=== PATIENT | female | born 1980 | race Caucasian/White ===

== ENCOUNTER 2019-01-08 14:22 | Inpatient (IN) | payer MEDICAID ==
[~2019-01-08] VITALS: Ht 170.2 cm; Wt 104.2 kg
[~2019-01-08 14:22] MED LIST: ALPR1TAB2; BUSP10TA PO; CHLO25CA9 PO; FLUO20CA19 PO; GABA-826 PO; TRAZ-137; TRAZ-137 PO
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
[2019-01-08] MEDS ORDERED: PANTOPRAZOLE 40 MG IV ONE ×2 (14:47→15:58)
[2019-01-08] MEDS ORDERED: LORazepam 2 MG/ML, 1ML ONE (14:48)
[2019-01-08] MEDS ORDERED: PANTOPRAZOLE 40 MG IV IVPush ONE ×2 (15:00→15:30)
[2019-01-08] MEDS ORDERED: LORazepam 2 MG/ML, 1ML IVPush ONE ×2 (15:00)
[2019-01-08] MEDS ORDERED: SODIUM CHLORIDE 0.9% 1,000ML IVBOLUS ONE ×2 (15:00→15:30)
[2019-01-08] MEDS ORDERED: SODIUM CHLORIDE FLUSH 10ML SYR IVF ONE ×2 (15:00)
--- NOTE | 2019-01-08 15:01 | NUR ---
PT MEDICATED PER [facility]
[2019-01-08 15:13] LABS: MEAN CORPUSCULAR HEMOGLOBIN 32.2 pg (27.0-34.8); MEAN CORPUSCULAR HGB CONC 32.5 g/dL (32.4-35.8); MEAN CORPUSCULAR VOLUME 99.3 fL (80-100); MEAN PLATELET VOLUME 8.6 fL (7.4-10.4); PLATELET COUNT 89 x10^3/uL (130-400); RED BLOOD COUNT 2.48 x10^6/uL (3.82-5.3); RED CELL DISTRIBUTION WIDTH 19.2 % (9.6-15.2)
[2019-01-08 15:17] LABS: INTERNATIONAL NORMALIZED RATIO 1.4 (0.93-1.1); PROTHROMBIN TIME 14.5 Seconds (9.6-11.5)
[2019-01-08] MEDS ORDERED: PANTOPRAZOLE 80 MG in SODIUM CHLORIDE 0.9% 100 ML IV SCH ×2 (15:17→18:00)
[2019-01-08] MEDS ORDERED: OCTREOTIDE 500 MCG in SODIUM CHLORIDE 0.9% 249 ML IV PRN (15:17)
[2019-01-08 15:22] LABS: ALANINE AMINOTRANSFERASE 54 U/L (12-78); ALBUMIN 1.7 g/dL (3.4-5.0); ANION GAP 13 mmol/L (5-15); CALCIUM 7.1 mg/dL (8.5-10.1); CHLORIDE 107 mmol/L (98-107); CREATININE 1.05 mg/dL (0.55-1.02)
[2019-01-08 15:24] LABS: ALKALINE PHOSPHATASE 168 U/L (45-117); BILIRUBIN,TOTAL 5.6 mg/dL (0.2-1.0); TOTAL PROTEIN 7.4 g/dL (6.4-8.2)
--- NOTE | 2019-01-08 15:27 | NUR ---
2ND IV PLACED IN RIGHT AC.
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
[2019-01-08] MEDS: D5%-0.45% NACL 1,000 ML IV SCH ×4 (15:30→23:18)
[2019-01-08] MEDS ORDERED: THIAMINE 200 MG in SODIUM CHLORIDE 0.9% 50 ML IV ONE (15:30)
[2019-01-08] MEDS ORDERED: DIAZEPAM 5 MG/ML, 10ML VIAL IV ONE ×2 (15:30)
[2019-01-08 15:38] LABS: BASOPHILS # (AUTO) 0.05 x10^3/uL (0-0.1); BASOPHILS % (AUTO) 0 % (0-1); EOSINOPHILS # (AUTO) 0.02 x10^3/uL (0-0.4); EOSINOPHILS % (AUTO) 0 % (1-7); LYMPHOCYTES # (AUTO) 2.93 x10^3/uL (1-3.4); LYMPHOCYTES % (AUTO) 17 % (22-44); MD SCAN; MONOCYTES # (AUTO) 1.16 x10^3/uL (0.2-0.8); MONOCYTES % (AUTO) 7 % (2-9); NEUTROPHILS # (AUTO) 13.31 x10^3/uL (1.8-6.8); NEUTROPHILS % (AUTO) 76 % (42-75)
--- NOTE | 2019-01-08 15:40 | NUR ---
DISCUSSION WITH MD Covington/Celestine MURCIA MD WANTING PROTONIX AND OCTREOTIDE TO RUN IN THE 2 LINES AVAILABLE, PERMISSION TO HOLD THYAMINE AND D5 AT THIS TIME. WILL CONTINUE TO MONITOR AND REASSESS.
[2019-01-08] MEDS ORDERED: CEFTRIAXONE PMX 1GM/50ML 50 ML IV ONE (16:00)
--- NOTE | 2019-01-08 16:10 | NUR ---
pt to ct
--- NOTE | 2019-01-08 16:25 | NUR ---
PT BACK FROM CT. RESTING COMFORTABLY IN BED. PT CONTINUES TO BE TACHY BUT HAS DECREASED TO 130S, OTHER VSS AT THIS TIME. AWAITING TEST RESULTS AND DISPO. CALL SAVANNAH LEGGETT REACH
[2019-01-08] MEDS ORDERED: OMNIPAQUE 350 MG/ML, 100ML BOTTLE ONE (16:34)
[2019-01-08] MEDS ORDERED: CEFTRIAXONE PMX 1GM/50ML 50 ML ONE (17:02)
--- NOTE | 2019-01-08 17:10 | NUR ---
DISCUSSION WITH ER MD FOR BLOOD CULTURES TO BE DRAWN PRIOR TO [facility] ADMIN.
--- NOTE | 2019-01-08 17:15 | NUR ---
CALLED FOR REPORT, [facility] PORTFOLIO MANAGER STATED THEY WILL CALL ME BACK.
--- NOTE | 2019-01-08 17:22 | NUR ---
REPORT GIVEN TO KARTHIK RN
[2019-01-08] MEDS ORDERED: MAGNESIUM SULFATE 4 GM/NS 100 ML IV ONE (17:30)
--- NOTE | 2019-01-08 17:30 | NUR ---
hospitalist at bedside. pt given ice chips with MD permission. pt legs and body cleaned with damp rags. pt provided chapstick and is ready for transport to an inpatient unit.
[2019-01-08] MEDS ORDERED: hydrALAzine 20 MG/ML, 1ML IVPush PRN (18:00)
[2019-01-08] MEDS ORDERED: morphine SULFATE 10 MG/ML, 1ML IVPush PRN (18:00)
[2019-01-08] MEDS ORDERED: LORazepam 2 MG/ML, 1ML IVPush PRN (18:00)
[2019-01-08] MEDS ORDERED: POTASSIUM CHLORIDE 20 MEQ, MAGNESIUM SULFATE 1 GM, FOLIC ACID 1 MG, THIAMINE 200 MG, MV... IV SCH (18:00)
[2019-01-08] MEDS: CEFTRIAXONE PMX 2GM/50ML 50 ML IV SCH (18:47)
[2019-01-08 19:20] VITALS: BP 100/58
[2019-01-08 19:47] LABS: MD SCAN
[2019-01-08 19:48] LABS: BASOPHILS # (AUTO) 0.03 x10^3/uL (0-0.1); BASOPHILS % (AUTO) 0 % (0-1); EOSINOPHILS # (AUTO) 0.05 x10^3/uL (0-0.4); EOSINOPHILS % (AUTO) 0 % (1-7); LYMPHOCYTES # (AUTO) 3.24 x10^3/uL (1-3.4); LYMPHOCYTES % (AUTO) 22 % (22-44); MEAN CORPUSCULAR HEMOGLOBIN 32.6 pg (27.0-34.8); MEAN CORPUSCULAR HGB CONC 32.6 g/dL (32.4-35.8); MEAN CORPUSCULAR VOLUME 99.8 fL (80-100); MEAN PLATELET VOLUME 8.9 fL (7.4-10.4); MONOCYTES # (AUTO) 0.75 x10^3/uL (0.2-0.8); MONOCYTES % (AUTO) 5 % (2-9); NEUTROPHILS # (AUTO) 10.92 x10^3/uL (1.8-6.8); NEUTROPHILS % (AUTO) 73 % (42-75); PLATELET COUNT 72 x10^3/uL (130-400); RED BLOOD COUNT 2.35 x10^6/uL (3.82-5.3); RED CELL DISTRIBUTION WIDTH 19.3 % (9.6-15.2)
[2019-01-08] MEDS: METRONIDAZOLE PMX 500MG/100ML 100 ML IV SCH (19:58)
[2019-01-08] MEDS ORDERED: LORazepam 2 MG/ML, 1ML IV PRN ×2 (21:00)
[2019-01-08] MEDS: MULTIVITAMINS/MINERALS TABLET PO SCH (21:00)
[2019-01-08] MEDS: LORazepam 2 MG/ML, 1ML IV PRN (22:12)
[2019-01-09] VITALS (7 sets, daily range): BP systolic 100–114; BP diastolic 59–71
[2019-01-09 01:35] LABS: ALANINE AMINOTRANSFERASE 49 U/L (12-78); ALBUMIN 1.8 g/dL (3.4-5.0); ANION GAP 11 mmol/L (5-15); CALCIUM 6.6 mg/dL (8.5-10.1); CHLORIDE 107 mmol/L (98-107)
[2019-01-09 01:38] LABS: ALKALINE PHOSPHATASE 146 U/L (45-117); BILIRUBIN,TOTAL 5.1 mg/dL (0.2-1.0); CREATININE 0.99 mg/dL (0.55-1.02); TOTAL PROTEIN 6.7 g/dL (6.4-8.2)
[2019-01-09] MEDS: OCTREOTIDE 500 MCG in SODIUM CHLORIDE 0.9% 249 ML IV SCH ×2 (02:13→16:55)
[2019-01-09] MEDS: METRONIDAZOLE PMX 500MG/100ML 100 ML IV SCH ×3 (05:13→20:06)
[2019-01-09] MEDS: POTASSIUM CHLORIDE 20 MEQ, MAGNESIUM SULFATE 1 GM, FOLIC ACID 1 MG, THIAMINE 200 MG, MV... IV SCH (05:40)
[2019-01-09] MEDS: PANTOPRAZOLE 40 MG IV IVPush SCH ×2 (08:36→20:06)
[2019-01-09] MEDS: MULTIVITAMINS/MINERALS TABLET PO SCH ×2 (08:38→20:06)
[2019-01-09] MEDS: LORazepam 2 MG/ML, 1ML IV PRN ×5 (08:42→21:54)
[2019-01-09] MEDS ORDERED: LIDOCAINE-MPF 1%, 5ML ONE (11:24)
[2019-01-09 13:20] LABS: AMPHETAMINE SCREEN, URINE Negative (Negative); BARBITURATE SCREEN, URINE Negative (Negative); BENZODIAZEPINE SCREEN, URINE Positive (Negative); CANNABINOID SCREEN, URINE Negative (Negative); COCAINE SCREEN, URINE Negative (Negative); METHADONE SCREEN, URINE Negative (Negative); OPIATE SCREEN, URINE Negative (Negative)
[2019-01-09 13:30] LABS: CULTURE INDICATED? YES; MICROSCOPIC INDICATED
[2019-01-09] MEDS: D5%-0.45% NACL 1,000 ML IV SCH ×2 (14:25→16:55)
[2019-01-09] MEDS: CEFTRIAXONE PMX 2GM/50ML 50 ML IV SCH (16:55)
[2019-01-09 20:11] LABS: MEAN CORPUSCULAR HEMOGLOBIN 32.9 pg (27.0-34.8); MEAN CORPUSCULAR HGB CONC 32.6 g/dL (32.4-35.8); MEAN PLATELET VOLUME 8.5 fL (7.4-10.4); RED BLOOD COUNT 1.98 x10^6/uL (3.82-5.3); RED CELL DISTRIBUTION WIDTH 18.6 % (9.6-15.2)
[2019-01-09 20:13] LABS: PLATELET COUNT 32 x10^3/uL (130-400)
[2019-01-09 20:21] LABS: MD YES
[2019-01-09 20:25] LABS: EOS#(MANUAL) 0.36 x10^3/uL (0.0-0.4); EOS% (MANUAL) 5 % (1-7); LYMPHS% (MANUAL) 18 % (22-44); MONOS#(MANUAL) 0.22 x10^3/uL (0.3-2.7); MONOS% (MANUAL) 3 % (2-9); SEG#(MANUAL) 5.33 x10^3/uL (1.8-6.8); SEGS% (MANUAL) 74 % (42-75)
[2019-01-09 20:26] LABS: ANISOCYTOSIS 1+; OVALOCYTES 1+; POLYCHROMASIA 1+
[2019-01-09 20:27] LABS: <PLATELET ESTIMATE> DECREASED; <PLT MORPHOLOGY> NORMAL PLT MORPH
[2019-01-10 00:29] VITALS: BP 108/62
[2019-01-10] MEDS: LORazepam 2 MG/ML, 1ML IV PRN ×6 (01:09→23:27)
[2019-01-10 02:02] VITALS: BP 95/65
[2019-01-10 02:32] LABS: MEAN CORPUSCULAR HEMOGLOBIN 31.4 pg (27.0-34.8); MEAN CORPUSCULAR HGB CONC 32.1 g/dL (32.4-35.8); MEAN CORPUSCULAR VOLUME 97.7 fL (80-100); MEAN PLATELET VOLUME 8.8 fL (7.4-10.4); RED BLOOD COUNT 2.41 x10^6/uL (3.82-5.3); RED CELL DISTRIBUTION WIDTH 20.6 % (9.6-15.2)
[2019-01-10 02:33] LABS: PLATELET COUNT 32 x10^3/uL (130-400)
[2019-01-10 03:04] LABS: BASOPHILS # (AUTO) 0.02 x10^3/uL (0-0.1); BASOPHILS % (AUTO) 0 % (0-1); EOSINOPHILS # (AUTO) 0.16 x10^3/uL (0-0.4); EOSINOPHILS % (AUTO) 2 % (1-7); LYMPHOCYTES # (AUTO) 1.45 x10^3/uL (1-3.4); LYMPHOCYTES % (AUTO) 21 % (22-44); MD SCAN; MONOCYTES # (AUTO) 0.58 x10^3/uL (0.2-0.8); MONOCYTES % (AUTO) 9 % (2-9); NEUTROPHILS # (AUTO) 4.54 x10^3/uL (1.8-6.8); NEUTROPHILS % (AUTO) 67 % (42-75)
[2019-01-10] MEDS: METRONIDAZOLE PMX 500MG/100ML 100 ML IV SCH ×3 (03:41→20:31)
[2019-01-10] MEDS: OCTREOTIDE 500 MCG in SODIUM CHLORIDE 0.9% 249 ML IV SCH ×2 (04:48→14:37)
[2019-01-10] MEDS: POTASSIUM CHLORIDE 20 MEQ, MAGNESIUM SULFATE 1 GM, FOLIC ACID 1 MG, THIAMINE 200 MG, MV... IV SCH (06:24)
[2019-01-10 06:28] VITALS: BP 113/70
[2019-01-10 08:01] LABS: ALANINE AMINOTRANSFERASE 33 U/L (12-78); ALBUMIN 1.4 g/dL (3.4-5.0); ANION GAP 6 mmol/L (5-15); CALCIUM 6.6 mg/dL (8.5-10.1); CHLORIDE 108 mmol/L (98-107); CREATININE 0.68 mg/dL (0.55-1.02)
[2019-01-10 08:03] LABS: ALKALINE PHOSPHATASE 111 U/L (45-117); BILIRUBIN,TOTAL 5.2 mg/dL (0.2-1.0); TOTAL PROTEIN 5.8 g/dL (6.4-8.2)
[2019-01-10] MEDS: MULTIVITAMINS/MINERALS TABLET PO SCH ×2 (08:04→20:31)
[2019-01-10] MEDS: PANTOPRAZOLE 40 MG IV IVPush SCH ×2 (08:04→20:31)
[2019-01-10 09:15] LABS: CELLS COUNTED 63
[2019-01-10 09:16] LABS: MEAN CORPUSCULAR HEMOGLOBIN 32.3 pg (27.0-34.8); MEAN CORPUSCULAR HGB CONC 33.1 g/dL (32.4-35.8); MEAN CORPUSCULAR VOLUME 97.6 fL (80-100); MEAN PLATELET VOLUME 8.5 fL (7.4-10.4)
[2019-01-10 09:19] LABS: BASOPHILS # (AUTO) 0.03 x10^3/uL (0-0.1); BASOPHILS % (AUTO) 0 % (0-1); EOSINOPHILS # (AUTO) 0.22 x10^3/uL (0-0.4); EOSINOPHILS % (AUTO) 3 % (1-7); LYMPHOCYTES # (AUTO) 1.54 x10^3/uL (1-3.4); LYMPHOCYTES % (AUTO) 24 % (22-44); MD SCAN; MONOCYTES # (AUTO) 0.56 x10^3/uL (0.2-0.8); MONOCYTES % (AUTO) 9 % (2-9); NEUTROPHILS # (AUTO) 4.16 x10^3/uL (1.8-6.8); NEUTROPHILS % (AUTO) 64 % (42-75); PLATELET COUNT 31 x10^3/uL (130-400)
[2019-01-10 13:39] VITALS: BP 110/74
[2019-01-10] MEDS: D5%-0.45% NACL 1,000 ML IV SCH (16:53)
[2019-01-10] MEDS: CEFTRIAXONE PMX 2GM/50ML 50 ML IV SCH (16:53)
[2019-01-10] MEDS ORDERED: POTASSIUM CHLORIDE 20 MEQ TAB.ER.PRT PO ONE (18:00)
[2019-01-10 19:09] VITALS: BP 109/72
[2019-01-11] MEDS: OCTREOTIDE 500 MCG in SODIUM CHLORIDE 0.9% 249 ML IV SCH ×2 (00:30→08:45)
[2019-01-11] MEDS: D5%-0.45% NACL 1,000 ML IV SCH ×3 (00:30→17:44)
[2019-01-11 00:38] VITALS: BP 113/83
[2019-01-11] MEDS: LORazepam 2 MG/ML, 1ML IV PRN ×4 (01:45→20:46)
[2019-01-11] MEDS: METRONIDAZOLE PMX 500MG/100ML 100 ML IV SCH ×3 (04:07→20:23)
[2019-01-11] MEDS: POTASSIUM CHLORIDE 20 MEQ, MAGNESIUM SULFATE 1 GM, FOLIC ACID 1 MG, THIAMINE 200 MG, MV... IV SCH (06:14)
[2019-01-11 06:50] LABS: MEAN CORPUSCULAR HEMOGLOBIN 32.7 pg (27.0-34.8); MEAN CORPUSCULAR HGB CONC 32.7 g/dL (32.4-35.8); MEAN CORPUSCULAR VOLUME 99.8 fL (80-100); MEAN PLATELET VOLUME 9.5 fL (7.4-10.4); RED BLOOD COUNT 2.75 x10^6/uL (3.82-5.3); RED CELL DISTRIBUTION WIDTH 21.4 % (9.6-15.2)
[2019-01-11 06:53] LABS: PLATELET COUNT 36 x10^3/uL (130-400)
[2019-01-11 06:59] LABS: ALBUMIN 1.6 g/dL (3.4-5.0); ANION GAP 7 mmol/L (5-15); CHLORIDE 107 mmol/L (98-107)
[2019-01-11 07:03] LABS: ALANINE AMINOTRANSFERASE 37 U/L (12-78); ALKALINE PHOSPHATASE 124 U/L (45-117); BILIRUBIN,TOTAL 6.7 mg/dL (0.2-1.0); CREATININE 0.69 mg/dL (0.55-1.02)
[2019-01-11 07:33] LABS: BASOPHILS # (AUTO) 0.04 x10^3/uL (0-0.1); BASOPHILS % (AUTO) 1 % (0-1); EOSINOPHILS # (AUTO) 0.18 x10^3/uL (0-0.4); EOSINOPHILS % (AUTO) 3 % (1-7); LYMPHOCYTES # (AUTO) 1.15 x10^3/uL (1-3.4); LYMPHOCYTES % (AUTO) 18 % (22-44); MD SCAN; MONOCYTES % (AUTO) 6 % (2-9); NEUTROPHILS # (AUTO) 4.51 x10^3/uL (1.8-6.8); NEUTROPHILS % (AUTO) 72 % (42-75)
[2019-01-11] MEDS: PANTOPRAZOLE 40 MG IV IVPush SCH ×2 (08:22→20:23)
[2019-01-11] MEDS: MULTIVITAMINS/MINERALS TABLET PO SCH ×2 (08:22→20:45)
[2019-01-11 08:41] VITALS: BP 112/83
[2019-01-11] MEDS ORDERED: MAGNESIUM SULFATE PMX 2GM/50ML 50 ML IV ONE ×2 (11:00→15:00)
[2019-01-11] MEDS ORDERED: PROPOFOL 10 MG/ML, 20ML ONE (13:27)
[2019-01-11] MEDS ORDERED: ACETAMINOPHEN 325 MG TABLET PO PRN (14:30)
[2019-01-11] MEDS ORDERED: ONDANSETRON ODT 8 MG PO PRN (14:30)
[2019-01-11] MEDS ORDERED: ONDANSETRON 2MG/ML, 2ML IV PRN (14:30)
[2019-01-11] MEDS ORDERED: OXYcodone 5 MG/5 ML ORAL.SOL UDC PO PRN (14:30)
[2019-01-11] MEDS ORDERED: FENTANYL PF 100 MCG/2ML IV PRN (14:30)
[2019-01-11 14:50] VITALS: BP 109/76
[2019-01-11] MEDS: OMEPRAZOLE 20 MG CAPSULE.DR PO SCH (16:43)
[2019-01-11] MEDS: ONDANSETRON 2MG/ML, 2ML IVPush PRN (16:44)
[2019-01-11] MEDS: CEFTRIAXONE PMX 2GM/50ML 50 ML IV SCH (19:37)
[2019-01-11 19:52] VITALS: BP 111/77
[2019-01-11] MEDS: MAGNESIUM OXIDE 400 MG TABLET PO SCH (20:45)
[2019-01-12] MEDS: D5%-0.45% NACL 1,000 ML IV SCH (00:37)
[2019-01-12] MEDS: LORazepam 2 MG/ML, 1ML IV PRN ×5 (01:41→21:55)
[2019-01-12 01:59] VITALS: BP 113/83
[2019-01-12] MEDS: METRONIDAZOLE PMX 500MG/100ML 100 ML IV SCH ×3 (04:18→20:06)
[2019-01-12] MEDS: POTASSIUM CHLORIDE 20 MEQ, MAGNESIUM SULFATE 1 GM, FOLIC ACID 1 MG, THIAMINE 200 MG, MV... IV SCH (06:13)
[2019-01-12 07:01] LABS: ALANINE AMINOTRANSFERASE 30 U/L (12-78); ALBUMIN 1.5 g/dL (3.4-5.0); ANION GAP 7 mmol/L (5-15); CALCIUM 7.2 mg/dL (8.5-10.1); CHLORIDE 108 mmol/L (98-107); CREATININE 0.67 mg/dL (0.55-1.02)
[2019-01-12 07:03] LABS: ALKALINE PHOSPHATASE 109 U/L (45-117); BILIRUBIN,TOTAL 6.2 mg/dL (0.2-1.0); TOTAL PROTEIN 6.4 g/dL (6.4-8.2)
[2019-01-12 07:28] LABS: MEAN CORPUSCULAR HEMOGLOBIN 33.1 pg (27.0-34.8); MEAN CORPUSCULAR HGB CONC 32.9 g/dL (32.4-35.8); MEAN CORPUSCULAR VOLUME 100.5 fL (80-100); RED BLOOD COUNT 2.67 x10^6/uL (3.82-5.3); RED CELL DISTRIBUTION WIDTH 23.3 % (9.6-15.2)
[2019-01-12 07:34] LABS: BASOPHILS # (AUTO) 0.01 x10^3/uL (0-0.1); BASOPHILS % (AUTO) 0 % (0-1); EOSINOPHILS # (AUTO) 0.17 x10^3/uL (0-0.4); EOSINOPHILS % (AUTO) 3 % (1-7); LYMPHOCYTES % (AUTO) 24 % (22-44); MD SCAN; MEAN PLATELET VOLUME 8.7 fL (7.4-10.4); MONOCYTES # (AUTO) 0.59 x10^3/uL (0.2-0.8); MONOCYTES % (AUTO) 9 % (2-9); NEUTROPHILS # (AUTO) 4.08 x10^3/uL (1.8-6.8); NEUTROPHILS % (AUTO) 64 % (42-75)
[2019-01-12 07:40] LABS: PLATELET COUNT 43 x10^3/uL (130-400)
[2019-01-12 07:45] LABS: INTERNATIONAL NORMALIZED RATIO 1.82 (0.93-1.1); PROTHROMBIN TIME 18.7 Seconds (9.6-11.5)
[2019-01-12 08:07] VITALS: BP 130/77
[2019-01-12] MEDS ORDERED: LORazepam 1MG TABLET ONE ×2 (08:25→17:25)
[2019-01-12] MEDS: OMEPRAZOLE 20 MG CAPSULE.DR PO SCH ×2 (08:59→17:11)
[2019-01-12] MEDS: MULTIVITAMINS/MINERALS TABLET PO SCH ×2 (09:01→20:06)
[2019-01-12] MEDS: MAGNESIUM OXIDE 400 MG TABLET PO SCH ×2 (09:01→20:10)
[2019-01-12] MEDS: PANTOPRAZOLE 40 MG IV IVPush SCH (09:02)
[2019-01-12] MEDS ORDERED: POTASSIUM CHLORIDE 20 MEQ TAB.ER.PRT PO ONE ×2 (11:30)
[2019-01-12 15:00] VITALS: BP 109/75
[2019-01-12 15:46] VITALS: BP 96/63
[2019-01-12 16:00] VITALS: BP 109/75
[2019-01-12] MEDS: POTASSIUM CHLORIDE 20 MEQ PACKET PO SCH (17:11)
[2019-01-12] MEDS: CEFTRIAXONE PMX 2GM/50ML 50 ML IV SCH (17:11)
[2019-01-12 20:41] VITALS: BP 114/82
[2019-01-13 01:53] VITALS: BP 111/76
[2019-01-13] MEDS: METRONIDAZOLE PMX 500MG/100ML 100 ML IV SCH (04:29)
[2019-01-13] MEDS: POTASSIUM CHLORIDE 20 MEQ, MAGNESIUM SULFATE 1 GM, FOLIC ACID 1 MG, THIAMINE 200 MG, MV... IV SCH (06:28)
[2019-01-13 06:43] LABS: MEAN CORPUSCULAR HEMOGLOBIN 31.9 pg (27.0-34.8); MEAN CORPUSCULAR VOLUME 99.7 fL (80-100); PLATELET COUNT 55 x10^3/uL (130-400); RED BLOOD COUNT 2.89 x10^6/uL (3.82-5.3); RED CELL DISTRIBUTION WIDTH 23.1 % (9.6-15.2)
[2019-01-13 06:54] LABS: ALANINE AMINOTRANSFERASE 28 U/L (12-78); ALBUMIN 1.6 g/dL (3.4-5.0); ANION GAP 7 mmol/L (5-15); CALCIUM 7.6 mg/dL (8.5-10.1); CHLORIDE 109 mmol/L (98-107); CREATININE 0.65 mg/dL (0.55-1.02)
[2019-01-13 06:55] LABS: INTERNATIONAL NORMALIZED RATIO 1.83 (0.93-1.1); PROTHROMBIN TIME 18.8 Seconds (9.6-11.5)
[2019-01-13 06:57] LABS: ALKALINE PHOSPHATASE 121 U/L (45-117); BILIRUBIN,TOTAL 7.4 mg/dL (0.2-1.0); TOTAL PROTEIN 6.8 g/dL (6.4-8.2)
[2019-01-13 07:02] LABS: BASOPHILS # (AUTO) 0.02 x10^3/uL (0-0.1); BASOPHILS % (AUTO) 0 % (0-1); EOSINOPHILS # (AUTO) 0.15 x10^3/uL (0-0.4); EOSINOPHILS % (AUTO) 2 % (1-7); LYMPHOCYTES # (AUTO) 2.02 x10^3/uL (1-3.4); LYMPHOCYTES % (AUTO) 24 % (22-44); MD SCAN; MONOCYTES # (AUTO) 1.27 x10^3/uL (0.2-0.8); MONOCYTES % (AUTO) 15 % (2-9); NEUTROPHILS # (AUTO) 4.89 x10^3/uL (1.8-6.8); NEUTROPHILS % (AUTO) 59 % (42-75)
[2019-01-13] MEDS: OMEPRAZOLE 20 MG CAPSULE.DR PO SCH ×2 (07:37→17:32)
[2019-01-13] MEDS: POTASSIUM CHLORIDE 20 MEQ PACKET PO SCH ×2 (07:37→17:32)
[2019-01-13] MEDS: FUROSEMIDE 20 MG TABLET PO SCH (07:37)
[2019-01-13] MEDS: LORazepam 2 MG/ML, 1ML IV PRN ×3 (07:37→22:41)
[2019-01-13] MEDS: MULTIVITAMINS/MINERALS TABLET PO SCH ×2 (07:37→20:41)
[2019-01-13] MEDS: MAGNESIUM OXIDE 400 MG TABLET PO SCH ×2 (07:38→20:41)
[2019-01-13] MEDS: SPIRONOLACTONE 100 MG TABLET PO SCH (07:38)
[2019-01-13 07:55] VITALS: BP 115/78
[2019-01-13] MEDS: D5%-0.45% NACL 1,000 ML IV SCH (09:44)
[2019-01-13 12:24] VITALS: BP 106/72
[2019-01-13] MEDS: CEFTRIAXONE PMX 2GM/50ML 50 ML IV SCH (17:32)
[2019-01-13 19:51] VITALS: BP 113/78
[2019-01-14] MEDS: ONDANSETRON 2MG/ML, 2ML IVPush PRN (00:55)
[2019-01-14] MEDS: LORazepam 2 MG/ML, 1ML IV PRN ×4 (00:55→17:42)
[2019-01-14 01:34] VITALS: BP 108/75
[2019-01-14] MEDS: POTASSIUM CHLORIDE 20 MEQ, MAGNESIUM SULFATE 1 GM, FOLIC ACID 1 MG, THIAMINE 200 MG, MV... IV SCH ×2 (06:27→12:19)
[2019-01-14 07:57] LABS: ALBUMIN 1.5 g/dL (3.4-5.0); ANION GAP 8 mmol/L (5-15); CALCIUM 7.8 mg/dL (8.5-10.1); CHLORIDE 111 mmol/L (98-107)
[2019-01-14 08:00] LABS: ALANINE AMINOTRANSFERASE 23 U/L (12-78); ALKALINE PHOSPHATASE 112 U/L (45-117); BILIRUBIN,TOTAL 7.5 mg/dL (0.2-1.0); TOTAL PROTEIN 6.4 g/dL (6.4-8.2)
[2019-01-14 08:12] LABS: INTERNATIONAL NORMALIZED RATIO 1.81 (0.93-1.1); MEAN CORPUSCULAR HEMOGLOBIN 32.2 pg (27.0-34.8); MEAN CORPUSCULAR HGB CONC 32.4 g/dL (32.4-35.8); MEAN CORPUSCULAR VOLUME 99.4 fL (80-100); MEAN PLATELET VOLUME 9.3 fL (7.4-10.4); PLATELET COUNT 68 x10^3/uL (130-400); PROTHROMBIN TIME 18.6 Seconds (9.6-11.5); RED BLOOD COUNT 2.63 x10^6/uL (3.82-5.3)
[2019-01-14 08:20] VITALS: BP 107/68
[2019-01-14 08:35] LABS: BASOPHILS # (AUTO) 0.04 x10^3/uL (0-0.1); BASOPHILS % (AUTO) 0 % (0-1); EOSINOPHILS # (AUTO) 0.08 x10^3/uL (0-0.4); EOSINOPHILS % (AUTO) 1 % (1-7); LYMPHOCYTES # (AUTO) 2.06 x10^3/uL (1-3.4); LYMPHOCYTES % (AUTO) 23 % (22-44); MD SCAN; MONOCYTES # (AUTO) 1.49 x10^3/uL (0.2-0.8); MONOCYTES % (AUTO) 17 % (2-9); NEUTROPHILS # (AUTO) 5.14 x10^3/uL (1.8-6.8); NEUTROPHILS % (AUTO) 58 % (42-75)
[2019-01-14] MEDS: OMEPRAZOLE 20 MG CAPSULE.DR PO SCH ×2 (09:15→17:29)
[2019-01-14] MEDS: MULTIVITAMINS/MINERALS TABLET PO SCH ×2 (09:15→20:59)
[2019-01-14] MEDS: SPIRONOLACTONE 100 MG TABLET PO SCH (09:15)
[2019-01-14] MEDS: POTASSIUM CHLORIDE 20 MEQ PACKET PO SCH ×2 (09:15→17:29)
[2019-01-14] MEDS: FUROSEMIDE 20 MG TABLET PO SCH (09:15)
[2019-01-14] MEDS: MAGNESIUM OXIDE 400 MG TABLET PO SCH ×2 (09:16→20:59)
[2019-01-14] MEDS ORDERED: MAGNESIUM SULFATE PMX 2GM/50ML 50 ML IV ONE (10:00)
[2019-01-14 12:30] VITALS: BP 106/72
[2019-01-14] MEDS: CEFTRIAXONE PMX 2GM/50ML 50 ML IV SCH (17:30)
[2019-01-14 21:05] VITALS: BP 93/67
[2019-01-15 00:53] VITALS: BP 96/68
[2019-01-15] MEDS: POTASSIUM CHLORIDE 20 MEQ, MAGNESIUM SULFATE 1 GM, FOLIC ACID 1 MG, THIAMINE 200 MG, MV... IV SCH (07:00)
[2019-01-15 07:58] VITALS: BP 100/66
[2019-01-15 09:11] LABS: INTERNATIONAL NORMALIZED RATIO 1.69 (0.93-1.1); PROTHROMBIN TIME 17.4 Seconds (9.6-11.5)
[2019-01-15 09:13] LABS: MEAN CORPUSCULAR HEMOGLOBIN 31.9 pg (27.0-34.8); MEAN CORPUSCULAR HGB CONC 32.4 g/dL (32.4-35.8); MEAN CORPUSCULAR VOLUME 98.7 fL (80-100); MEAN PLATELET VOLUME 9.3 fL (7.4-10.4); PLATELET COUNT 88 x10^3/uL (130-400); RED BLOOD COUNT 2.77 x10^6/uL (3.82-5.3)
[2019-01-15 09:14] LABS: ALBUMIN 1.5 g/dL (3.4-5.0); ANION GAP 8 mmol/L (5-15); CALCIUM 8.1 mg/dL (8.5-10.1); CHLORIDE 108 mmol/L (98-107)
[2019-01-15 09:17] LABS: ALANINE AMINOTRANSFERASE 22 U/L (12-78); ALKALINE PHOSPHATASE 109 U/L (45-117); BILIRUBIN,TOTAL 7.2 mg/dL (0.2-1.0); CREATININE 0.68 mg/dL (0.55-1.02); TOTAL PROTEIN 6.6 g/dL (6.4-8.2)
[2019-01-15] MEDS: MAGNESIUM OXIDE 400 MG TABLET PO SCH ×2 (09:55→21:00)
[2019-01-15] MEDS: SPIRONOLACTONE 100 MG TABLET PO SCH (09:55)
[2019-01-15] MEDS: FUROSEMIDE 20 MG TABLET PO SCH (09:55)
[2019-01-15] MEDS: MULTIVITAMINS/MINERALS TABLET PO SCH ×2 (09:55→21:00)
[2019-01-15] MEDS: POTASSIUM CHLORIDE 20 MEQ PACKET PO SCH ×2 (09:55→17:00)
[2019-01-15] MEDS: OMEPRAZOLE 20 MG CAPSULE.DR PO SCH ×2 (09:55→16:30)
[2019-01-15 10:29] LABS: MD YES
[2019-01-15 10:48] LABS: EOS#(MANUAL) 0.16 x10^3/uL (0.0-0.4); EOS% (MANUAL) 2 % (1-7); LYMPH#(MANUAL) 1.11 x10^3/uL (1-3.4); LYMPHS% (MANUAL) 14 % (22-44); MONOS#(MANUAL) 1.26 x10^3/uL (0.3-2.7); MONOS% (MANUAL) 16 % (2-9); SEG#(MANUAL) 5.37 x10^3/uL (1.8-6.8); SEGS% (MANUAL) 68 % (42-75)
[2019-01-15 10:49] LABS: <PLATELET ESTIMATE> DECREASED; <PLT MORPHOLOGY> NORMAL PLT MORPH; ANISOCYTOSIS 1+; POLYCHROMASIA 1+
[2019-01-15 13:28] VITALS: BP 108/72
[2019-01-15] MEDS: CEFTRIAXONE PMX 2GM/50ML 50 ML IV SCH (17:12)
[2019-01-15 19:13] VITALS: BP 97/60
[2019-01-16 01:32] VITALS: BP 91/60
[2019-01-16] MEDS: OMEPRAZOLE 20 MG CAPSULE.DR PO SCH ×2 (07:30→17:10)
[2019-01-16 07:34] VITALS: BP 94/59
[2019-01-16] MEDS: POTASSIUM CHLORIDE 20 MEQ, MAGNESIUM SULFATE 1 GM, FOLIC ACID 1 MG, THIAMINE 200 MG, MV... IV SCH (08:17)
[2019-01-16] MEDS: POTASSIUM CHLORIDE 20 MEQ PACKET PO SCH ×2 (08:17→17:10)
[2019-01-16] MEDS: MAGNESIUM OXIDE 400 MG TABLET PO SCH ×2 (08:17→20:21)
[2019-01-16] MEDS: LORazepam 2 MG/ML, 1ML IV PRN (08:17)
[2019-01-16] MEDS: MULTIVITAMINS/MINERALS TABLET PO SCH ×2 (08:18→20:21)
[2019-01-16] MEDS: SPIRONOLACTONE 100 MG TABLET PO SCH (08:18)
[2019-01-16] MEDS: FUROSEMIDE 20 MG TABLET PO SCH (08:18)
[2019-01-16 08:39] LABS: MEAN CORPUSCULAR HEMOGLOBIN 31.9 pg (27.0-34.8); MEAN CORPUSCULAR HGB CONC 32.5 g/dL (32.4-35.8); MEAN CORPUSCULAR VOLUME 98.3 fL (80-100); MEAN PLATELET VOLUME 9.3 fL (7.4-10.4); PLATELET COUNT 121 x10^3/uL (130-400); RED BLOOD COUNT 2.81 x10^6/uL (3.82-5.3); RED CELL DISTRIBUTION WIDTH 22.2 % (9.6-15.2)
[2019-01-16 08:43] LABS: INTERNATIONAL NORMALIZED RATIO 1.58 (0.93-1.1); PROTHROMBIN TIME 16.3 Seconds (9.6-11.5)
[2019-01-16 08:47] LABS: ALBUMIN 1.5 g/dL (3.4-5.0); ANION GAP 9 mmol/L (5-15); CALCIUM 8.1 mg/dL (8.5-10.1); CHLORIDE 108 mmol/L (98-107)
[2019-01-16 08:51] LABS: ALANINE AMINOTRANSFERASE 20 U/L (12-78); ALKALINE PHOSPHATASE 102 U/L (45-117); BILIRUBIN,TOTAL 7.1 mg/dL (0.2-1.0); CREATININE 0.76 mg/dL (0.55-1.02); TOTAL PROTEIN 6.7 g/dL (6.4-8.2)
[2019-01-16 09:05] LABS: MD YES
[2019-01-16 09:06] LABS: EOS% (MANUAL) 1 % (1-7); LYMPHS% (MANUAL) 33 % (22-44); MONOS% (MANUAL) 9 % (2-9); SEGS% (MANUAL) 57 % (42-75)
[2019-01-16 09:07] LABS: ANISOCYTOSIS 1+; POLYCHROMASIA 1+
[2019-01-16 09:08] LABS: <PLATELET ESTIMATE> DECREASED; <PLT MORPHOLOGY> NORMAL PLT MORPH; TARGET CELLS 1+
[2019-01-16 14:45] VITALS: BP 99/65
[2019-01-16] MEDS: CEFTRIAXONE PMX 2GM/50ML 50 ML IV SCH (17:10)
[2019-01-16 19:59] VITALS: BP 99/64
[2019-01-17 00:40] VITALS: BP 113/76
[2019-01-17 05:28] LABS: MEAN CORPUSCULAR HEMOGLOBIN 32.7 pg (27.0-34.8); MEAN CORPUSCULAR HGB CONC 32.7 g/dL (32.4-35.8); MEAN CORPUSCULAR VOLUME 99.8 fL (80-100); MEAN PLATELET VOLUME 9.5 fL (7.4-10.4); PLATELET COUNT 140 x10^3/uL (130-400); RED CELL DISTRIBUTION WIDTH 21.5 % (9.6-15.2)
[2019-01-17 05:33] LABS: ALANINE AMINOTRANSFERASE 20 U/L (12-78); ALBUMIN 1.5 g/dL (3.4-5.0); ANION GAP 5 mmol/L (5-15); CALCIUM 8.1 mg/dL (8.5-10.1); CHLORIDE 108 mmol/L (98-107)
[2019-01-17 05:35] LABS: ALKALINE PHOSPHATASE 100 U/L (45-117); BILIRUBIN,TOTAL 6.9 mg/dL (0.2-1.0); TOTAL PROTEIN 6.5 g/dL (6.4-8.2)
[2019-01-17 06:00] LABS: MD YES
[2019-01-17 06:02] LABS: BANDS%(MANUAL) 1 % (0-7); EOS% (MANUAL) 1 % (1-7); LYMPH#(MANUAL) 3.57 x10^3/uL (1-3.4); LYMPHS% (MANUAL) 35 % (22-44); MONOS#(MANUAL) 0.92 x10^3/uL (0.3-2.7); MONOS% (MANUAL) 9 % (2-9); SEG#(MANUAL) 5.51 x10^3/uL (1.8-6.8); SEGS% (MANUAL) 54 % (42-75)
[2019-01-17 06:04] LABS: ANISOCYTOSIS 1+; POLYCHROMASIA 1+
[2019-01-17 06:05] LABS: <PLATELET ESTIMATE> ADEQUATE; <PLT MORPHOLOGY> NORMAL PLT MORPH; OVALOCYTES 1+; TARGET CELLS 1+
[2019-01-17 07:36] VITALS: BP 107/69
[2019-01-17] MEDS: OMEPRAZOLE 20 MG CAPSULE.DR PO SCH ×2 (08:26→17:27)
[2019-01-17] MEDS: MULTIVITAMINS/MINERALS TABLET PO SCH ×2 (08:26→20:59)
[2019-01-17] MEDS: POTASSIUM CHLORIDE 20 MEQ, MAGNESIUM SULFATE 1 GM, FOLIC ACID 1 MG, THIAMINE 200 MG, MV... IV SCH (08:26)
[2019-01-17] MEDS: POTASSIUM CHLORIDE 20 MEQ PACKET PO SCH ×2 (08:26→17:27)
[2019-01-17] MEDS: MAGNESIUM OXIDE 400 MG TABLET PO SCH ×2 (08:26→20:59)
[2019-01-17] MEDS: SPIRONOLACTONE 100 MG TABLET PO SCH (08:26)
[2019-01-17] MEDS: FUROSEMIDE 20 MG TABLET PO SCH (08:27)
[2019-01-17 12:58] VITALS: BP 107/73
[2019-01-17] MEDS: CEFTRIAXONE PMX 2GM/50ML 50 ML IV SCH (17:27)
[2019-01-17 19:29] VITALS: BP 104/65
[2019-01-18 02:12] VITALS: BP 110/70
[2019-01-18 06:35] LABS: MEAN CORPUSCULAR HEMOGLOBIN 32.6 pg (27.0-34.8); MEAN CORPUSCULAR HGB CONC 32.5 g/dL (32.4-35.8); MEAN CORPUSCULAR VOLUME 100.3 fL (80-100); MEAN PLATELET VOLUME 9.1 fL (7.4-10.4); PLATELET COUNT 146 x10^3/uL (130-400); RED BLOOD COUNT 2.73 x10^6/uL (3.82-5.3); RED CELL DISTRIBUTION WIDTH 21.7 % (9.6-15.2)
[2019-01-18 06:45] LABS: ALANINE AMINOTRANSFERASE 21 U/L (12-78); ALBUMIN 1.4 g/dL (3.4-5.0); ANION GAP 7 mmol/L (5-15); CALCIUM 7.7 mg/dL (8.5-10.1); CHLORIDE 109 mmol/L (98-107); CREATININE 0.69 mg/dL (0.55-1.02)
[2019-01-18 06:48] LABS: ALKALINE PHOSPHATASE 95 U/L (45-117); BILIRUBIN,TOTAL 6.7 mg/dL (0.2-1.0); TOTAL PROTEIN 6.6 g/dL (6.4-8.2)
[2019-01-18] MEDS: POTASSIUM CHLORIDE 20 MEQ, MAGNESIUM SULFATE 1 GM, FOLIC ACID 1 MG, THIAMINE 200 MG, MV... IV SCH (07:02)
[2019-01-18] MEDS: OMEPRAZOLE 20 MG CAPSULE.DR PO SCH ×2 (07:03→17:03)
[2019-01-18 07:37] LABS: BASOPHILS # (AUTO) 0.07 x10^3/uL (0-0.1); BASOPHILS % (AUTO) 1 % (0-1); EOSINOPHILS # (AUTO) 0.07 x10^3/uL (0-0.4); EOSINOPHILS % (AUTO) 1 % (1-7); LYMPHOCYTES # (AUTO) 3.16 x10^3/uL (1-3.4); LYMPHOCYTES % (AUTO) 33 % (22-44); MD SCAN; MONOCYTES # (AUTO) 1.82 x10^3/uL (0.2-0.8); MONOCYTES % (AUTO) 19 % (2-9); NEUTROPHILS # (AUTO) 4.61 x10^3/uL (1.8-6.8); NEUTROPHILS % (AUTO) 47 % (42-75)
[2019-01-18 08:15] VITALS: BP 101/67
[2019-01-18] MEDS: SPIRONOLACTONE 100 MG TABLET PO SCH (08:18)
[2019-01-18] MEDS: FUROSEMIDE 20 MG TABLET PO SCH (08:19)
[2019-01-18] MEDS: POTASSIUM CHLORIDE 20 MEQ PACKET PO SCH ×2 (08:19→17:03)
[2019-01-18] MEDS: MULTIVITAMINS/MINERALS TABLET PO SCH ×2 (08:19→20:42)
[2019-01-18] MEDS: MAGNESIUM OXIDE 400 MG TABLET PO SCH ×2 (08:19→20:42)
[2019-01-18 15:03] VITALS: BP 97/63
[2019-01-18] MEDS: CEFTRIAXONE PMX 2GM/50ML 50 ML IV SCH (17:03)
[2019-01-18 20:04] VITALS: BP 107/70
[2019-01-19 01:13] VITALS: BP 110/75
[2019-01-19 06:08] LABS: ALBUMIN 1.5 g/dL (3.4-5.0); ANION GAP 8 mmol/L (5-15); CALCIUM 7.6 mg/dL (8.5-10.1); CHLORIDE 108 mmol/L (98-107)
[2019-01-19 06:12] LABS: ALANINE AMINOTRANSFERASE 20 U/L (12-78); ALKALINE PHOSPHATASE 91 U/L (45-117); BILIRUBIN,TOTAL 6.3 mg/dL (0.2-1.0); CREATININE 0.68 mg/dL (0.55-1.02); TOTAL PROTEIN 6.5 g/dL (6.4-8.2)
[2019-01-19] MEDS: FUROSEMIDE 20 MG TABLET PO SCH (07:31)
[2019-01-19] MEDS: MAGNESIUM OXIDE 400 MG TABLET PO SCH (07:31)
[2019-01-19] MEDS: SPIRONOLACTONE 100 MG TABLET PO SCH (07:31)
[2019-01-19] MEDS: MULTIVITAMINS/MINERALS TABLET PO SCH (07:32)
[2019-01-19] MEDS: POTASSIUM CHLORIDE 20 MEQ PACKET PO SCH (07:32)
[2019-01-19] MEDS: OMEPRAZOLE 20 MG CAPSULE.DR PO SCH (07:40)
[2019-01-19 08:08] VITALS: BP 108/72
[2019-01-19] MEDS ORDERED: FOLIC ACID 1 MG TABLET PO SCH (09:00)
[2019-01-19] MEDS ORDERED: THIAMINE 100MG TABLET PO SCH (09:00)
[2019-01-19 12:58] VITALS: BP 98/65
[2019-01-19] MEDS ORDERED: THIA100T67 PO (14:38)
[2019-01-19] MEDS ORDERED: LEVO750T6 PO (14:38)
[2019-01-19] MEDS ORDERED: POTA20PA25 PO (14:38)
[2019-01-19] MEDS ORDERED: SPIR100T PO (14:38)
[2019-01-19] MEDS ORDERED: MULT-484 PO (14:38)
[2019-01-19] MEDS ORDERED: MAGN400T50 PO (14:38)
[2019-01-19] MEDS ORDERED: FOLI-17 PO (14:38)
[2019-01-19] MEDS ORDERED: FURO20TA3 PO (14:38)
[2019-01-19] MEDS ORDERED: OMEP-110 PO (14:38)
== END 2019-01-19 16:22 | disposition home or self-care (01) | DRG 432 ==
LOC: ED 14:47 → EDIP 16:59 → 4WST 17:47
PROVIDERS: ADMIT Hospitalist; ATTEND Hospitalist
PROC: 30233N1 Transfusion of Nonautologous Red Blood Cells into Peripheral Vein, Percutaneous Approach (ICD-10-PCS; 2019-01-09)
PROC: 0W9G3ZZ Drainage of Peritoneal Cavity, Percutaneous Approach (ICD-10-PCS; 2019-01-09)
PROC: 0DJ08ZZ Inspection of Upper Intestinal Tract, Via Natural or Artificial Opening Endoscopic (ICD-10-PCS; principal; 2019-01-11 13:00)
DX: K70.31 Alcoholic cirrhosis of liver with ascites (principal); E43 Unspecified severe protein-calorie malnutrition; G93.41 Metabolic encephalopathy; K85.20 Alcohol induced acute pancreatitis without necrosis or infection; N17.0 Acute kidney failure with tubular necrosis; I85.11 Secondary esophageal varices with bleeding; D62 Acute posthemorrhagic anemia; D68.9 Coagulation defect, unspecified; E87.2 Acidosis; F10.231 Alcohol dependence with withdrawal delirium; K76.6 Portal hypertension; K22.10 Ulcer of esophagus without bleeding; F32.9 Major depressive disorder, single episode, unspecified; L40.9 Psoriasis, unspecified; B96.89 Other specified bacterial agents as the cause of diseases classified elsewhere; D69.6 Thrombocytopenia, unspecified; D72.821 Monocytosis (symptomatic); E83.42 Hypomagnesemia; F41.1 Generalized anxiety disorder; K44.9 Diaphragmatic hernia without obstruction or gangrene; K70.11 Alcoholic hepatitis with ascites; Y90.8 Blood alcohol level of 240 mg/100 ml or more; Z87.891 Personal history of nicotine dependence; Z98.891 History of uterine scar from previous surgery; Z68.36 Body mass index [BMI] 36.0-36.9, adult; Z88.8 Allergy status to other drugs, medicaments and biological substances
CPT/HCPCS: 36415; 96361; 99291; J7042; 49083; 74177; 80053; 80074; 80307; 81001; 82105; 82140; 82306; 82390; 82607; 82728; 83516; 83540; 83550; 83690; 83735; 84100; 84425; 84590; 84630; 84703; 85014; 85018; 85025; 85610; 85730; 86038; 86704; 86706; 86708; 86850; 86900; 86923; 87040; 87070; 87076; 87086; 87205; 87521; 88112; 89051; 96374; 96375; G0378; J0696; J2354; J2405; J2704; J3360; J3411; J3475; J3480; J7070; Q9967; C9113; J2060; J7030; J7050; P9016

== ENCOUNTER 2019-02-08 08:08 | Inpatient (IN) | payer MEDICAID ==
[~2019-02-08] VITALS: Ht 170.2 cm; Wt 110.0 kg
[2019-02-15 13:13] VITALS: BP 110/72
== END 2019-02-15 16:19 | disposition home or self-care (01) | DRG 871 ==
LOC: ED 10:14 → CCU 10:46 → 4EST 02-11 17:51
PROVIDERS: ADMIT Internal Medicine; ATTEND Internal Medicine
PROC: 30233N1 Transfusion of Nonautologous Red Blood Cells into Peripheral Vein, Percutaneous Approach (ICD-10-PCS; 2019-02-08)
PROC: 06L38CZ Occlusion of Esophageal Vein with Extraluminal Device, Via Natural or Artificial Opening Endoscopic (ICD-10-PCS; principal; 2019-02-09)
PROC: 02HV33Z Insertion of Infusion Device into Superior Vena Cava, Percutaneous Approach (ICD-10-PCS; 2019-02-09)
PROC: B548ZZA Ultrasonography of Superior Vena Cava, Guidance (ICD-10-PCS; 2019-02-09)
DX: A41.02 Sepsis due to Methicillin resistant Staphylococcus aureus (principal); E43 Unspecified severe protein-calorie malnutrition; J69.0 Pneumonitis due to inhalation of food and vomit; I85.11 Secondary esophageal varices with bleeding; R57.1 Hypovolemic shock; R65.21 Severe sepsis with septic shock; D62 Acute posthemorrhagic anemia; D68.69 Other thrombophilia; E87.1 Hypo-osmolality and hyponatremia; F10.231 Alcohol dependence with withdrawal delirium; K76.6 Portal hypertension; D69.6 Thrombocytopenia, unspecified; Z68.38 Body mass index [BMI] 38.0-38.9, adult; Z88.5 Allergy status to narcotic agent; E83.42 Hypomagnesemia; E87.6 Hypokalemia; F41.1 Generalized anxiety disorder; I86.4 Gastric varices; K21.0 Gastro-esophageal reflux disease with esophagitis; K31.89 Other diseases of stomach and duodenum; K70.31 Alcoholic cirrhosis of liver with ascites; K72.90 Hepatic failure, unspecified without coma; K73.9 Chronic hepatitis, unspecified; Y90.7 Blood alcohol level of 200-239 mg/100 ml; Z87.19 Personal history of other diseases of the digestive system; Z87.891 Personal history of nicotine dependence; Z91.19 Patient's noncompliance with other medical treatment and regimen; Z98.891 History of uterine scar from previous surgery
CPT/HCPCS: 36415; 74022; 82042; 99291; J3490; J7613; J7620; 36430; 36573; 49083; 71045; 80048; 80053; 80307; 81001; 82140; 82306; 82330; 83605; 83615; 83690; 83735; 83970; 84100; 84443; 84703; 85018; 85025; 85610; 85730; 86850; 86900; 86923; 87040; 87070; 87081; 87205; 89051; 93005; 94640; 94667; 94668; 96374; 96375; G0378; J0696; J1940; J2020; J2354; J2405; J2560; J2704; J3411; J3430; J3475; J3480; J3486; P9047; C1751; C9113; J2060; J2370; J7030; J7040; J7050; P9016